=== PATIENT | male | born 1955 | race Caucasian/White ===

== ENCOUNTER 2018-12-22 01:53 | Inpatient (IN) ==
[2018-12-22] MEDS ORDERED: DILAUDID IV ONE (03:40)
[2018-12-22] MEDS ORDERED: ZOFRAN IV ONE (03:40)
--- NOTE | 2018-12-22 03:46 | PROVIDER DOCUMENTATION ---
HPI-Musculoskeletal Pain/Inj - GENERAL Chief Complaint: Hip Injury Stated Complaint: fall (L hip pain) Time Seen by Provider: 12/22/18 02:23 - HX OF PRESENT ILLNESS-MUSKULOSKELTAL Nature of Presenting Problem: Pt states that he rolled out of bed onto floor injuring his left hip. Pt denies any other injuries. Quality of Pain: reports: sharp, stabbing Severity in ED: moderate Onset/Duration: 1-3 hours ago Timing: still present Modifying Factors: improves with: movement Any recent injury?: Yes Locality of Occurance: Home Similar Symptoms Previously?: No Recently seen or treated by another doctor?: No - FALL INJURY Location of Pain/Injury: reports: lower extremity Pain Radiation: reports: no radiation Reason for Fall: reports: unknown Symptoms prior to fall:: reports: none Loss of Consciousness: no loss of consciousness Injury Associated Symptoms: reports: unable to bear weight - BACK & NECK PAIN/INJURY Context / Method of Injury: reports: fall Associated Symptoms: reports: denies symptoms History of Chronic Neck or Back Pain?: No - TRUNK INJURY Context / Method of Injury: reports: none Associated Symptoms: reports: denies symptoms - HIP/PELVIS PAIN/INJURY Hip Pain Location: reports: hip (L) Pain Radiation: reports: no radiation Context / Method of Injury: reports: fall Associated Symptoms: reports: denies symptoms - LOWER EXTREMITY PAIN/INJURY Lower Extremities Pain: hip: left Context / Method of Injury: reports: fell (out of bed) Associated Symptoms: reports: denies symptoms Review of Systems - Adult - REVIEW OF SYSTEMS - ADULT Constitutional: reports: no symptoms reported, see HPI Eyes: reports: no symptoms reported, see HPI Ears, Nose, Mouth & Throat: reports: no symptoms reported, see HPI Cardiovascular: reports: no symptoms reported, see HPI Respiratory: reports: no symptoms reported, see HPI Gastrointestinal: reports: no symptoms reported, see HPI Genitourinary: reports: no symptoms reported, see HPI Musculoskeletal: reports: see HPI, joint pain (lt hip pain) Integumentary: reports: no symptoms reported, see HPI Neurological: reports: no symptoms reported, see HPI Psychiatric: reports: no symptoms reported, see HPI Endocrine: reports: no symptoms reported, see HPI Hematologic/Lymphatic: reports: no symptoms reported, see HPI Allergic/Immunologic: reports: no symptoms reported, see HPI All Other Systems: Reviewed and Negative Past History - Adult - PAST MEDICAL HISTORY-ADULT Review of Records: reports: Nursing Assessment Review, Medications Reviewed, Social history reviewed & non-contributory. Major Childhood Illnesses: reports: denies history Cardiovascular: reports: HTN Respiratory: reports: denies history Gastrointestinal: reports: denies history Genitourinary: reports: denies history Musculoskeletal: reports: other (rt knee OA) Neurological: reports: denies history Psychiatric: reports: denies history Endocrine/Immune: reports: Diabetes Physical Exam-Injury Related - Physical Exam-Injury Related Initial Vital Signs Reviewed: Yes General Appearance: appears well, alert, no apparent distress Eyes: PERRL/EOMI Head, Ears, Nose, Mouth & Throat: normocephalic/atraumatic, moist mucous membranes, normal ENT inspection Neck: non-tender, full range of motion, supple, normal inspection Respiratory: chest non-tender, lungs clear, normal breath sounds, no pleuratic chest pain, no respiratory distress, no accessory muscle use Cardiovascular: normal peripheral pulses, regular rate, rhythm, no edema, no gallop, no JVD, no murmur Abdominal Exam: normal bowel sounds, non tender, soft, no organomegaly, no pulsatile mass Lymphatic: no adenopathy Back Exam: normal inspection, no CVA tenderness, no vertebral tenderness Extremity: deformity, tenderness (to Lt hip) Integumentary: normal color, warm/dry 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 as tested, grossly normal, no motor/sensory deficits Psych/Mental Status: normal mood/affect, normal thought content, normal thought process, oriented x 3 - Glascow Coma Score Best Eye Response (Alexand[place]): (4) open spontaneously Best Verbal Response (Genoveva): (5) oriented Best Motor Response (Genoveva): (6) obeys commands Progress - PLAN OF CARE/RESULTS Progress/Plan/Lab Results: Vital Signs - 8 hr 12/22/18 02:05 Temperature 98.6 F Pulse Rate 101 H Respiratory Rate 14 Blood Pressure 128/85 O2 Sat by Pulse Oximetry 95 Orders Category Date Time Status CHEST-1 VIEW [RAD] Stat Exams 12/22/18 03:11 Taken XRAY PELVIS W/HIP 2-3VW LT [RAD] Stat Exams 12/22/18 02:24 Taken Hydromorphone [Dilaudid] Med 12/22/18 03:40 Discontinued 1 mg IV NOW ONE Ondansetron [Zofran] Med 12/22/18 03:40 Discontinued 4 mg IV NOW ONE - CONSULTS/PCP/HOSPITALIST Notification #1 *Consult/PCP/Hospitalist*: Dr Jaquez Time Discussed: 03:48 (agrees consult) Consult Disposition: Admit #2 Consult: Dr Pineda Time Discussed: 03:48 Consult Disposition: Admit Departure - Departure Date of Disposition Decision: 12/22/18 Time of Disposition Decision: 03:48 DIAGNOSIS: Hip fracture, left Disposition: ADMITTED INPATIENT 09 Certified Medical Emergency: Emergent Condition: Fair Additional Freetext Instructions: ED Follow Up Instructions: You have been treated by a care provider in the Emergency Department. These instructions are being provided to you so you can have an understanding of how to care for yourself upon discharge. Upon discharge from the Emergency Department, you are responsible for making arrangements for follow-up care by a physician of your choice. Take all prescribed medications as directed. Return to the Emergency Department immediately for any new or worsening symptoms. You may call the Physician Referral phone number at [phone] to obtain a list of Physicians who are taking new patients. Referrals and Follow-Ups: Howard Tejeda MD [Primary Care Provider] - - Critical Care Note This patient required my direct & personal management of CC.: No Attestation - Physician/ WILL Attestation Patient care was provided by Advanced Practice Provider:: No The physician spent face to face time with patient:: Yes Advanced Practice Provider documentation review:: Supervising physician onsite and consulted in the evaluation and care of this patient. The physician did have a face to face encounter with the patient.
[2018-12-22 05:22] LABS: AGAP 15; ALB/GLOB RATIO 2.9; ALBUMIN 4.3 g/dL (3.5-5.0); ALKALINE PHOSPHATASE 46 U/L (32-122); BUN 24 mg/dL (8-22); CALCIUM 9.7 mg/dL (8.8-10.2); CHLORIDE 103 mmol/L (98-107); COSMO 294; CREATININE 0.6 mg/dL (0.7-1.2); ESTIMATED GFR > 60; GLUCOSE 248 mg/dL (70-104); GOT 21 U/L (10-34); GPT 23 U/L (10-44); POTASSIUM 4.4 mmol/L (3.5-5.1); SODIUM 141 mmol/L (136-145); TCO2 23 mmol/L (25-35); TOTAL BILIRUBIN 0.38 mg/dL (0.20-1.00); TOTAL PROTEIN 5.8 g/dL (6.3-8.3)
[2018-12-22 05:23] LABS: CHOLESTEROL 126 mg/dL (0-200); HDL 46 mg/dL (35-55); LDL 63 mg/dL; TRIGLYCERIDES 83 mg/dL (39-160); VLDL 17 mg/dL
--- NOTE | 2018-12-22 05:25 | HISTORY AND PHYSICAL ---
PRIMARY CARE PROVIDER: Dr. Howard Tejeda. CHIEF COMPLAINT: Hip injury after fall out of bed. HISTORY OF PRESENT ILLNESS: Mr. Larose is a very pleasant 63-year-old male. He rolled out of his bed onto the floor injuring his left hip today after being asleep for roughly 1 hour. He was then unable to bear weight. He did not hit his head. He did not have loss of consciousness. He states that the pain is a sharp aching pain. He has a past medical history of hypertension, hyperlipidemia, osteoarthritis of the right knee and adult onset diabetes mellitus type 2 managed with oral antihyperglycemics. He is managed by Dr. Howard Tejeda outpatient. On arrival to the emergency room, an x-ray was obtained of his pelvis and left hip which did show a left hip fracture. Dr. Jaquez was consulted with. The patient will be admitted for further evaluation and treatment. PAST MEDICAL HISTORY: See HPI. PREVIOUS SURGICAL HISTORY: 1. Tonsillectomy. 2. Knee arthroscopy. SOCIAL HISTORY: Lives at home with family. He is . No tobacco, alcohol or illicit drug use. 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 FAMILY HISTORY: Mother had ovarian and lung cancer. Father had lung cancer. Were both fairly heavy smokers. ALLERGIES: No known drug allergies. HOME MEDICATION: 1. Carbidopa/levodopa 25/100. 2. Metformin 1000 mg p.o. b.i.d. 3. Atorvastatin 20 mg p.o. daily. 4. Invokana 100 mg p.o. q.a.m. 5. Zetia 10 mg p.o. daily. 6. Glimepiride 2 mg p.o. daily. 7. Lisinopril 10 mg p.o. daily. 8. Loratadine 10 mg p.o. daily. 9. Multivitamin 1 p.o. daily. 10.Naproxen 500 mg p.o. b.i.d. REVIEW OF SYSTEMS: Fourteen point review of systems conducted with the patient. Pertinent positives listed above in the HPI. All other systems reviewed and found to be negative. PHYSICAL EXAMINATION: VITAL SIGNS: Temperature 98.6, pulse 101, respirations 14, blood pressure 128/ 85, oxygen saturation 95% on room air. GENERAL: Pleasant, obese 63-year-old male lying in the ER stretcher, answers all questions appropriately, is alert and oriented times 3, is in no acute distress. Family is at bedside very attentive. HEENT: Head is atraumatic, normocephalic. Pupils are miotic, equal, round, reactive to light. Extraocular eye movement is intact. Sclerae are anicteric. Conjunctiva is pink. Oral mucosa is mildly dry. NECK: Supple. No JVD. No thyromegaly. Trachea is midline. No cervical lymphadenopathy. CARDIAC: S1, S2 appreciated. No murmurs, gallops, or rubs. Mildly tachycardic. LUNGS: Clear to auscultation bilaterally. No rhonchi, wheezes, rales. Symmetric rise and fall with respirations. ABDOMEN: Protuberant, soft, nondistended, nontender. Bowel sounds present all 4 quadrants, normoactive. No pulsatile mass. No organomegaly. EXTREMITIES: No clubbing, cyanosis, or edema. Two-plus pedal pulses bilaterally. MUSCULOSKELETAL: Left lower extremity decreased range of motion. Patient is able to move his foot. He is unable to move lower extremity within normal limits related to pain at the left hip. Left hip is tender to palpation as well. Other extremities range of motion within normal limits. NEUROLOGICAL: No focal or motor deficits. He is alert and oriented times 3. Otherwise was a nonfocal examination. GENITOURINARY: No bladder distention. Patient voids. Otherwise deferred. DIAGNOSTIC DATA: X-ray of pelvis and hip shows a right hip fracture. Chest x- ray: NAD. LABORATORY DATA: Pending. A CBC, CMP, PT with INR, PTT, hemoglobin A1c, lipid profile and urinalysis have all been ordered. These will be evaluated when available. ASSESSMENT AND PLAN: 1. Left hip fracture. Consult Dr. Jaquez. He was notified by the emergency room. Morphine 2 mg IV q.2 hours as needed for pain. 2. Hypertension. Patient is normotensive. Without having the patient's lab values at this time, I will not restart his lisinopril. We will defer to Dr. Howard Tejeda, his primary care provider, tomorrow as the patient is likely to have surgical intervention. 3. Diabetes mellitus type 2, noninsulin dependent. Again, we will hold his metformin, glimepiride and Invokana as he is NPO. We will defer to Dr. Howard Tejeda to restart these medications or perhaps start sliding scale insulin until the patient is eating normally again. 4. Hyperlipidemia. Check a lipid profile. Continue atorvastatin and Zetia. Further recommendations per patient clinical course. Dictated by PAMELA Carlton for Jt Pineda MD I have performed a face to face diagnostic evaluation. Labs/ Xrays - reviewed. Exam- Ext- Left hip tenderness. A/P- Left hip fracture- Admit, Pain control, Orthopedics consult Dr. Pineda cc: PAMELA Carlton MD Russell T. Barr, MD [facility]
[2018-12-22 05:30] LABS: BASO# 0.01 X1000 (0.0-0.2); BASO% 0.1 % (0.0-0.8); EOS# 0.09 X1000 (0.0-0.7); EOS% 1.2 % (0.0-10.0); HEMATOCRIT 47.2 % (42.0-52.0); HEMOGLOBIN 15.9 g/dL (14.0-18.0); LYMPH# 1.03 X1000 (1.2-3.4); LYMPH% 14.2 % (20.5-51.1); MCH 29.4 PG (27-31); MCHC 33.7 g/dL (33-37); MCV 87.2 FL (81-99); MONO# 0.53 X1000 (0.11-0.59); MONO% 7.3 % (1.7-9.3); MPV 11.6 FL (7.4-10.4); NEUT# 5.58 X1000 (1.4-6.5); NEUT% 77.2 % (42.2-75.2); PLT 116 X1000 (130-400); RBC 5.41 XMIL (4.7-6.1); WBC 7.24 X1000 (4.8-10.8)
[2018-12-22] MEDS: MORPHINE IV PRN ×4 (05:36→19:59)
[2018-12-22] MEDS: NS 1,000 ML IV SCH ×3 (05:39→20:04)
[2018-12-22 06:02] LABS: HEMOGLOBIN A1C 7.3 % (4.8-6.0)
[2018-12-22 07:09] LABS: INR 1.06; PROTIME 14.7 Seconds (11.0-16.0)
[2018-12-22 07:10] LABS: PTT 28.9 Seconds (22.3-41.8)
--- NOTE | 2018-12-22 07:16 | Diag Imaging Result Doc PS360 ---
EXAM: CHEST-1 VIEW 12/22/2018 HISTORY: hip fx protocol TECHNIQUE: AP supine chest at 0301 COMMENT: The inspiration is less optimal than on the previous study of 08/09/2012. Otherwise there has been no significant change. IMPRESSION: No acute disease. Electronically signed by Beck Nunez 12/22/2018 7:14 AM
--- NOTE | 2018-12-22 07:24 | Diag Imaging Result Doc PS360 ---
EXAM: XRAY PELVIS W/HIP 2-3VW LT 12/22/2018 HISTORY: fall, injury TECHNIQUE: AP pelvis and left hip three views COMMENT: There is a fracture of the left femoral neck. There is scoliosis of the lower lumbar spine with convexity to the left. IMPRESSION: Left femoral neck fracture. Electronically signed by Beck Nunez 12/22/2018 7:22 AM
[2018-12-22 07:41] LABS: URINE SOURCE CLEAN CATCH
[2018-12-22] MEDS: ZOFRAN IV PRN ×3 (07:41→17:51)
[2018-12-22 08:18] LABS: BILIRUBIN URINE NEGATIVE (NEGATIVE); BLOOD URINE NEGATIVE (NEGATIVE); COLOR YELLOW; GLUCOSE URINE >1000 mg/dL (NEGATIVE); KETONE URINE 10 mg/dL (NEGATIVE); LEUKOCYTES URINE NEGATIVE (NEGATIVE); NITRITE URINE NEGATIVE (NEGATIVE); PROTEIN URINE TRACE mg/dL (NEGATIVE); SP GRAVITY URINE 1.044; TURBIDITY URINE CLEAR (CLEAR); UROBILINOGEN URINE NORMAL (NORMAL)
[2018-12-22 08:19] LABS: UR EPITHELIAL CELLS <10 /HPF (<10); URINE BACTERIA NEGATIVE /HPF; URINE RBC <10 /HPF (<10); URINE WBC <10 /HPF (<10)
[2018-12-22] MEDS ORDERED: OXY IR PO PRN (08:50)
[2018-12-22] MEDS: THERA M PLUS PO SCH (09:30)
[2018-12-22] MEDS: LIPITOR PO SCH (09:30)
[2018-12-22] MEDS: ZETIA PO SCH (09:30)
--- NOTE | 2018-12-22 09:42 | PROGRESS NOTE ---
DATE: 12/22/2018 SUBJECTIVE: This is a patient of Dr. Howard Tejeda. Was admitted last night. A 63-year-old, rolled out of his bed. He was sound asleep and rolled out of his bed. He struck his left hip, has a hip fracture. They were in preparation and trying to see about getting his left hip or his left knee operated on because of arthritis. PAST MEDICAL HISTORY: Hypertension, hyperlipidemia, osteoarthritis. He has adult onset of type 2 diabetes, managed on oral medications. SURGICAL HISTORY: Tonsillectomy. He has had knee arthroplasty. PHYSICAL EXAMINATION: General: Today he is awake, alert, oriented x 3. Vital Signs: Remains afebrile. Temperature 97.9, pulse 96, respirations 14, blood pressure 115/69. HEENT: Pupils are equal and round. Lungs: Clear in all lung mac. Cardiovascular: Regular rhythm and rate without murmur or S3. Abdomen: Soft. Skin: Warm and dry. LABORATORY: We reviewed lab. White count 7240, hematocrit 47, platelet count 116,000. Sodium 141, potassium 4.4 chloride 103 bicarb 23, BUN 24, creatinine 0.6, albumin 4.3. Cholesterol profile really looks pretty good. Pro time 14.7, PTT is 28. Urinalysis unremarkable. X-ray of the pelvis and hip: He has a left femoral neck Fracture. ASSESSMENT AND PLAN: 1. Left femoral neck fracture. Dr. Jaquez seen. His orthopedic is Dr. Suh. I think they will probably defer surgery until tomorrow and looking at placing a bipolar. 2. Diabetes mellitus type 2. Have him on pattern sugars. 3. History of hypercholesterolemia. Continue his Lipitor. 4. Osteoarthritis. He is getting normal saline at 70 mL an hour. 5. I do not see any other change at this time. cc: MD Howard Elizabeth MD MTDD
--- NOTE | 2018-12-22 11:40 | CONSULTATION ---
DATE OF CONSULTATION: 12/22/2018 CLINICAL HISTORY: The patient is a 63-year-old male who is status post a fall last night while in the bed. He rolled out of bed and struck the floor, landing on his left hip. He noted immediate pain and discomfort. He is unable to bear weight. He denies loss of conscious. He has no other complaints. He was seen in the emergency room. X-rays revealed a left displaced femoral neck fracture. He was admitted to the hospital and orthopedic consultation was requested. The patient denies previous pain with the left hip. PAST MEDICAL HISTORY: Significant for diabetes mellitus type 2, hypertension, hyperlipidemia, osteoarthritis of the right knee. PAST SURGICAL HISTORY: 1. Tonsillectomy. 2. Arthroscopy of the right knee. HOME MEDICATIONS: 1. Carbidopa/levodopa 25/100. 2. Metformin 1000 mg p.o. b.i.d. 3. Atorvastatin 20 mg p.o. daily. 4. Invokana 100 mg p.o. q.a.m. 5. Zetia 10 mg p.o. daily. 6. Glimepiride 2 mg p.o. daily. 7. Lisinopril 10 mg p.o. daily. 8. Loratadine 10 mg p.o. daily. 9. Multivitamin one p.o. daily. 10. Naproxen 500 mg p.o. b.i.d. PHYSICAL EXAMINATION: The patient is awake, alert, and cooperative with the exam. He is nontender with palpation over the cervical spine. Bilateral extremities have good range of motion of the shoulders, elbows, wrists, and fingers. His left elbow has some area of ecchymosis on the posterior aspect of the elbow. There is no palpable deformity. He has good range of motion of the elbow. His left hip is held in an externally rotated position. He has tenderness to palpation about the hip and tenderness with movement. His calf is soft. He has active dorsiflexion and plantar flexion. Right hip, there is no palpable deformity. In the right knee, no acute abnormality. Calf is soft. He is neurovascularly distally. DIAGNOSTIC DATA: X-rays of the left hip revealed a left displaced femoral neck fracture. IMPRESSION: Left displaced femoral neck fracture. PLANS: At this point, I discussed treatment options with the patient. At this time, given patient's findings, I would recommend a total hip arthroplasty. I did discuss with Dr. Suh and he will plan on proceeding with surgery tomorrow. Risks and benefits of surgery were explained including the risks of anesthesia, , bleeding, infection, failure to relieve pain, postoperative stiffness, nerve injury, blood clots, and other imponderables. All questions were answered. The patient agrees to the treatment plan. cc: MD Howard Magallon MD
[2018-12-22] MEDS: SINEMET 25/100 PO SCH (20:00)
[2018-12-23] MEDS: MORPHINE IV PRN ×4 (00:04→07:45)
[2018-12-23] MEDS: ZOFRAN IV PRN ×2 (02:58→16:24)
[2018-12-23 06:10] LABS: BASO# 0.01 X1000 (0.0-0.2); BASO% 0.2 % (0.0-0.8); EOS# 0.16 X1000 (0.0-0.7); EOS% 2.6 % (0.0-10.0); HEMATOCRIT 48.8 % (42.0-52.0); HEMOGLOBIN 15.9 g/dL (14.0-18.0); LYMPH# 0.89 X1000 (1.2-3.4); LYMPH% 14.5 % (20.5-51.1); MCH 29.1 PG (27-31); MCHC 32.6 g/dL (33-37); MCV 89.2 FL (81-99); MONO# 0.64 X1000 (0.11-0.59); MONO% 10.4 % (1.7-9.3); MPV 11.5 FL (7.4-10.4); NEUT# 4.44 X1000 (1.4-6.5); NEUT% 72.3 % (42.2-75.2); PLT 107 X1000 (130-400); RBC 5.47 XMIL (4.7-6.1); RDW 13.3 % (11.5-14.5); WBC 6.14 X1000 (4.8-10.8)
[2018-12-23 06:37] LABS: AGAP 14; BUN 18 mg/dL (8-22); CALCIUM 8.6 mg/dL (8.8-10.2); CHLORIDE 103 mmol/L (98-107); COSMO 288; CREATININE 0.4 mg/dL (0.7-1.2); ESTIMATED GFR > 60; GLUCOSE 194 mg/dL (70-104); POTASSIUM 3.9 mmol/L (3.5-5.1); SODIUM 141 mmol/L (136-145); TCO2 24 mmol/L (25-35)
[2018-12-23] MEDS ORDERED: KEFZOL 1 GM/D5W 1 GM/50 ML IVPB IV ONE (07:03)
[2018-12-23] MEDS ORDERED: VERSED ONE (10:38)
[2018-12-23] MEDS ORDERED: FENTANYL ONE (10:38)
[2018-12-23] MEDS ORDERED: DIPRIVAN 1% ONE (10:39)
[2018-12-23] MEDS ORDERED: QUELICIN (DOSE) ONE (10:49)
[2018-12-23] MEDS ORDERED: XYLOCAINE-MPF 2% ONE (10:51)
[2018-12-23] MEDS ORDERED: TORADOL ONE (10:55)
[2018-12-23] MEDS ORDERED: DURAMORPH ONE (10:55)
[2018-12-23] MEDS ORDERED: SENSORCAINE-MPF 0.5%/EPI 1:200,000 ONE (10:56)
[2018-12-23] MEDS ORDERED: EXPAREL 1.3% ONE (10:56)
[2018-12-23] MEDS ORDERED: CYKLOKAPRON 1,000 MG/NS 1,000 MG/100 ML IVPB ONE (10:56)
[2018-12-23] MEDS ORDERED: SODIUM CHLORIDE 0.9% ONE (10:56)
[2018-12-23] MEDS ORDERED: NEOSPORIN G.U. IRRIGANT ONE (10:56)
[2018-12-23] MEDS ORDERED: KEFZOL 2 GM/D5W 2 GM/50 ML IVPB ONE (11:13)
--- NOTE | 2018-12-23 11:20 | EKG Report ---
Test Performed on : 12/22/2018 04:41:12 AM Test Reason : PREOP Blood Pressure : / mmHG Vent. Rate : 095 BPM Atrial Rate : 095 BPM P-R Int : 186 ms QRS Dur : 108 ms QT Int : 364 ms P-R-T Axes : 054 -55 041 degrees QTc Int : 457 ms Normal sinus rhythm. Left anterior fascicular block Abnormal ECG No previous ECGs available Unconfirmed Result
[2018-12-23] MEDS ORDERED: OFIRMEV 1000 MG/ISOTONIC SOLN 1,000 MG/100 ML BOTTLE ONE (12:26)
[2018-12-23] MEDS ORDERED: ZOFRAN ONE (12:26)
[2018-12-23 12:43] LABS: URINE SOURCE CATH
[2018-12-23 12:50] LABS: UR EPITHELIAL CELLS <10 /HPF (<10); URINE BACTERIA NEGATIVE /HPF; URINE RBC <10 /HPF (<10); URINE WBC <10 /HPF (<10)
[2018-12-23 13:28] LABS: BILIRUBIN URINE NEGATIVE (NEGATIVE); BLOOD URINE NEGATIVE (NEGATIVE); COLOR YELLOW; GLUCOSE URINE >1000 mg/dL (NEGATIVE); KETONE URINE 100 mg/dL (NEGATIVE); LEUKOCYTES URINE NEGATIVE (NEGATIVE); NITRITE URINE NEGATIVE (NEGATIVE); PH URINE 6.5; PROTEIN URINE NEGATIVE (NEGATIVE); SP GRAVITY URINE 1.032; TURBIDITY URINE CLEAR (CLEAR); UROBILINOGEN URINE NORMAL (NORMAL)
[2018-12-23] MEDS ORDERED: NS 1,000 ML ONE (14:41)
--- NOTE | 2018-12-23 15:39 | OPERATIVE NOTE ---
PROCEDURE DATE: 12/23/2018 PREOPERATIVE DIAGNOSIS: Left femoral neck fracture displaced. POSTOP DIAGNOSIS: Left femoral neck fracture displaced. PROCEDURE PERFORMED: Left anterior total hip arthroplasty using a size 12 standard offset stem with a +4 neck length, a 56 mm hemispherical shell with two 6.5 cancellous screws of 35 mm each and a 36 mm inside diameter acetabular liner. ANESTHESIA: General. SURGEON: Spenser Suh MD. MANAGER FIELD SALES: Joaquina Nixon PA-C. COMPLICATIONS: None. BLOOD LOSS: Minimal. DRAINS: Hemovac x1. DESCRIPTION OF PROCEDURE: The patient brought to the operative suite and placed in supine position. After successful administration general anesthesia patient placed on the OSI table in the usual position for left hip. The left hip was then prepped and draped in usual sterile fashion. A longitudinal incision was made beginning 3 cm distal and 3 cm lateral to the anterior superior iliac spine extending distally and slightly laterally 8 cm dissected sharply through skin and subcutaneous tissue down tensor fascia, tensor fascia was incised dissected bluntly down deep tensor fascia, deep tensor fascia was incised and circumflex vessels electrocauterized exposing the anterior capsule. A T capsulotomy was performed exposing the femoral neck. Femoral neck cut was made with oscillating saw. The femoral head was removed power corkscrew. Residual bone fragments from the fracture were removed with a rongeur. The labrum was resected. The acetabulum was serially reamed to 56 to accept a 56 cup. The 56 cup was then driven into place in the proper amount inclination, anteversion and two 6.5 cancellous screws of 35 mm in length were placed superiorly and posterior superiorly and then the 36 mm inside diameter liner was locked onto the shell. Attention was then directed to the femur, was externally rotated, extended, adducted, and elevated out of the way with the hook on the OSI bed. The lateral neck was rongeured. The canal was serially broached to a size 12, a size 12 standard offset +4 was trialed found be excellent leg length stability of the hip, offset and fit and fill of the stem and leg length. The trial was then removed. The definitive stem was seated on the femur and then a ceramic head was seated on the Song taper. The hip was again reduced. It was again found to be in excellent position. The hip was copiously infiltrated with Exparel including posterior capsule, anterior capsule, anterior musculature and subcutaneous tissue. Hip was copiously irrigated with normal saline containing irrigant and Vashe irrigation and then a drain was placed deep to tensor fascia and buried around the stem neck. The tensor fascia was closed with 0 V-Loc suture. Skin edge approximated 2-0 Vicryl. Skin was closed with 4-0 Monocryl and Prineo. A sterile dressing was applied. The patient tolerated the procedure well without complication. At the end the procedure, all counts were correct x2. The patient was transferred to the recovery room in stable condition. cc: MD Howard Munson MD
[2018-12-23] MEDS ORDERED: MILK OF MAGNESIA PO PRN (16:31)
[2018-12-23] MEDS ORDERED: OXY IR PO PRN ×2 (16:31)
[2018-12-23] MEDS ORDERED: ZOFRAN IV PRN (16:31)
[2018-12-23] MEDS ORDERED: MORPHINE IV PRN (16:31)
[2018-12-23] MEDS: ULTRAM PO SCH ×2 (16:45→23:38)
[2018-12-23] MEDS: TYLENOL PO SCH ×2 (18:23→23:38)
[2018-12-23] MEDS: GLUCOPHAGE PO SCH (18:27)
[2018-12-23] MEDS: KEFZOL 2 GM in D5W 50 ML IV SCH (18:47)
[2018-12-23] MEDS: PERIDEX MT SCH (20:36)
[2018-12-23] MEDS: COLACE PO SCH (20:36)
[2018-12-23] MEDS: LYRICA PO SCH (20:37)
[2018-12-23] MEDS: CELEBREX PO SCH (20:37)
[2018-12-23] MEDS: SINEMET 25/100 PO SCH (20:37)
[2018-12-23] MEDS: NON-FORMULARY INJ SUBQ SCH (20:37)
[2018-12-24] MEDS: TYLENOL PO SCH ×4 (03:33→21:32)
[2018-12-24] MEDS: KEFZOL 2 GM in D5W 50 ML IV SCH (03:34)
[2018-12-24] MEDS: ULTRAM PO SCH ×4 (03:34→21:32)
[2018-12-24 06:20] LABS: HEMATOCRIT 40.4 % (42.0-52.0); HEMOGLOBIN 13.4 g/dL (14.0-18.0)
[2018-12-24] MEDS: XARELTO PO SCH (06:33)
[2018-12-24] MEDS: NON-FORMULARY INJ SUBQ SCH ×2 (06:33→21:35)
[2018-12-24 06:44] LABS: AGAP 12; BUN 21 mg/dL (8-22); CALCIUM 8.3 mg/dL (8.8-10.2); CHLORIDE 100 mmol/L (98-107); COSMO 280; CREATININE 0.5 mg/dL (0.7-1.2); ESTIMATED GFR > 60; GLUCOSE 232 mg/dL (70-104); POTASSIUM 3.9 mmol/L (3.5-5.1); SODIUM 135 mmol/L (136-145); TCO2 23 mmol/L (25-35)
--- NOTE | 2018-12-24 08:02 | PROGRESS NOTE ---
DATE: 12/24/2018 SUBJECTIVE: Mr. Larose is a 63-year-old male, who is postoperative day 1 from a left anterior total hip arthroplasty for a left femoral neck fracture. He states he is doing well. He is complaining of some pain in his right knee at this time; although, he does have a history of right knee osteoarthritis. OBJECTIVE: He is a well-developed and well-nourished male. He is alert, oriented, and cooperative with the examination. He is in no acute distress. His vital signs are stable. He is afebrile. His left hip incision is clean, dry, and intact. His left calf is soft. His left leg is grossly neurovascularly intact. His right knee reveals pain and crepitus with range of motion. LABS: Hemoglobin is 13.4 and his hematocrit is 40.4. ASSESSMENT: Stable postoperative day 1 from a left anterior total hip arthroplasty, for a left femoral neck fracture with right knee pain for osteoarthritis. PLAN: We will have him start working with physical therapy and if his right knee continues to bother him, we can give him an injection tomorrow. Dictated by TIFFANY Owens for Spenser Suh MD cc: TIFFANY Owens MD Russell T. Barr, MD
[2018-12-24] MEDS ORDERED: ZOFRAN ODT PO PRN (09:00)
[2018-12-24] MEDS: LYRICA PO SCH ×2 (09:13→21:33)
[2018-12-24] MEDS: ZOFRAN PO SCH ×3 (09:13→21:34)
[2018-12-24] MEDS: GLUCOPHAGE PO SCH ×2 (09:14→17:54)
[2018-12-24] MEDS: CELEBREX PO SCH ×2 (09:14→21:33)
[2018-12-24] MEDS: THERA M PLUS PO SCH (09:15)
[2018-12-24] MEDS: CLARITIN PO SCH (09:15)
[2018-12-24] MEDS: COLACE PO SCH ×2 (09:15→21:33)
[2018-12-24] MEDS: AMARYL PO SCH (09:15)
[2018-12-24] MEDS: ZETIA PO SCH (09:15)
[2018-12-24] MEDS: PEPCID PO SCH (09:15)
[2018-12-24] MEDS: PRINIVIL PO SCH (09:15)
[2018-12-24] MEDS: PERIDEX MT SCH ×2 (09:16→21:32)
[2018-12-24] MEDS: LIPITOR PO SCH (09:16)
--- NOTE | 2018-12-24 12:15 | OPERATIVE NOTE ---
PROCEDURE DATE: 12/24/2018 PROCEDURE: Right knee injection with a mixture of bupivacaine and lidocaine and 80 mg of Depo- Medrol for right knee osteoarthritis. PROCEDURE IN DETAIL: I injected the patient's right knee sterilely which the patient tolerated it well. Hopefully, this will help with pain from his right knee osteoarthritis and we will continue to work with him in physical therapy. Dictated by TIFFANY Owens for Spenser Suh MD cc: TIFFANY Owens MD Russell T. Barr, MD [facility]
[2018-12-24] MEDS: SINEMET 25/100 PO SCH (21:33)
[2018-12-25] MEDS: TYLENOL PO SCH ×4 (05:01→18:03)
[2018-12-25] MEDS: XARELTO PO SCH (06:20)
[2018-12-25] MEDS: ULTRAM PO SCH ×3 (06:20→18:02)
[2018-12-25] MEDS: ZOFRAN PO SCH (06:20)
[2018-12-25] MEDS: NON-FORMULARY INJ SUBQ SCH ×2 (06:21→18:04)
[2018-12-25 06:39] LABS: HEMATOCRIT 39.1 % (42.0-52.0); HEMOGLOBIN 13.1 g/dL (14.0-18.0)
[2018-12-25] MEDS: LYRICA PO SCH ×2 (08:12→20:40)
[2018-12-25] MEDS: PRINIVIL PO SCH (08:12)
[2018-12-25] MEDS: CLARITIN PO SCH (08:12)
[2018-12-25] MEDS: PEPCID PO SCH (08:12)
[2018-12-25] MEDS: LIPITOR PO SCH (08:13)
[2018-12-25] MEDS: COLACE PO SCH (08:13)
[2018-12-25] MEDS: THERA M PLUS PO SCH (08:13)
[2018-12-25] MEDS: AMARYL PO SCH (08:13)
[2018-12-25] MEDS: PERIDEX MT SCH (08:13)
[2018-12-25] MEDS: CELEBREX PO SCH ×2 (08:13→20:40)
[2018-12-25] MEDS: ZETIA PO SCH (08:13)
[2018-12-25] MEDS: GLUCOPHAGE PO SCH ×2 (08:13→18:03)
[2018-12-25] MEDS ORDERED: SENOKOT PO ONE (08:51)
[2018-12-25] MEDS: INVOKANA PO SCH (10:34)
--- NOTE | 2018-12-25 13:44 | PROGRESS NOTE ---
DATE: 12/25/2018 SUBJECTIVE: Froilan Larose is a 63-year-old male who is postoperative day 2 from a left anterior total hip arthroplasty for a displaced femoral neck fracture. He has no complaints. He walked well with physical therapy this morning. He still has not had a bowel movement. OBJECTIVE: He is a well-developed, well-nourished male. He is alert, oriented, and cooperative with exam. His vital signs are stable. He is afebrile. His hemoglobin is 13. His hematocrit is 39%. His wound is clean, dry, intact without sign of infection. ASSESSMENT: Left total hip arthroplasty. PLAN: He will continue working with physical therapy. He will likely go to rehab later in the week. cc: MD Howard Munson MD
[2018-12-25] MEDS: SINEMET 25/100 PO SCH (20:40)
[2018-12-26] MEDS: ULTRAM PO SCH ×3 (03:12→11:54)
[2018-12-26] MEDS: TYLENOL PO SCH ×3 (03:12→11:53)
[2018-12-26] MEDS: NON-FORMULARY INJ SUBQ SCH (06:22)
[2018-12-26] MEDS: XARELTO PO SCH (06:26)
[2018-12-26 06:43] LABS: HEMATOCRIT 38.3 % (42.0-52.0); HEMOGLOBIN 12.5 g/dL (14.0-18.0)
[2018-12-26 07:39] VITALS: BP 130/76
[2018-12-26] MEDS: LIPITOR PO SCH ×2 (08:34→08:39)
[2018-12-26] MEDS: CELEBREX PO SCH (08:34)
[2018-12-26] MEDS: ZETIA PO SCH ×2 (08:35→08:40)
[2018-12-26] MEDS: INVOKANA PO SCH (08:35)
[2018-12-26] MEDS: PEPCID PO SCH (08:36)
[2018-12-26] MEDS: THERA M PLUS PO SCH ×2 (08:36→08:39)
[2018-12-26] MEDS: GLUCOPHAGE PO SCH (08:36)
[2018-12-26] MEDS: PRINIVIL PO SCH (08:36)
[2018-12-26] MEDS: AMARYL PO SCH (08:36)
[2018-12-26] MEDS: CLARITIN PO SCH (08:36)
[2018-12-26] MEDS: LYRICA PO SCH (08:40)
--- NOTE | 2018-12-26 10:02 | DISCHARGE SUMMARY ---
ADMISSION DATE: 12/22/2018 DISCHARGE DATE: 12/26/2018 FINAL DIAGNOSES: 1. Acute left femoral neck fracture, status post left total hip arthroplasty repair. 2. Type 2 diabetes mellitus with peripheral neuropathy. 3. Essential hypertension. HISTORY OF PRESENT ILLNESS: Mr. Larose is a 63-year-old gentleman who was brought to the emergency room by ambulance after his heard him fall out of bed approximately an hour after going to sleep. He was unable to stand or bear weight. He denied head injury or loss of consciousness. X- rays on arrival documented an acute left femoral neck fracture. He was admitted for orthopedic consultation and repair of his hip fracture. PHYSICAL EXAMINATION: Temperature 98.6, pulse 101, respirations 14, blood pressure 125/85. Normal O2 saturation. General appearance: Pleasant, obese, 63-year-old gentleman, alert and oriented. HEENT: No evidence of trauma. Pupils equal, round and reactive to light. Neck: Supple with no JVD. Cardiac: Regular rate and rhythm, no murmurs or gallops. Abdomen: Protuberant, soft, and nontender with active bowel sounds. Extremities: No clubbing, cyanosis, or edema. Left hip was tender to palpation and somewhat shortened and externally rotated. DATA BASE: CBC was normal. Clotting studies were normal. Chemistry profile normal with glucose of 248, hemoglobin A1c of 7.3%. Urinalysis unremarkable. HOSPITAL COURSE: He was admitted to the surgical floor and seen the next morning by Dr. Spenser Suh, his orthopedist. He was taken to the operating room on 12/23/2018 and underwent left total hip arthroplasty. His postoperative course was relatively benign. His blood sugar remained somewhat elevated as his metformin and Invokana were held prior to and immediately after surgery. He required several doses of NPH insulin for glucose control, but I do not think he will need this in rehab or at home. He has no resumed his oral hypoglycemics and his blood sugars are improving. He cooperated well with physical therapy and progressed well but his balance remains precarious due to his large size and his is unable to assist him much at home, and Dr. Suh and I, as well as the patient, felt that he would benefit from short term subacute rehab. He now has a bed at [facility] and is awaiting his insurance approval. I strongly feel 5- 7 days of rehab will be very beneficial for his health and safety. DISCHARGE MEDICATIONS: 1. Celebrex 200 mg twice a day. 2. Famotidine 20 mg daily. 3. Loratadine 10 mg daily p.r.n. for allergies. 4. Zofran ODT 4 mg q.4-6 hours as needed for nausea. 5. Xarelto 10 mg daily. 6. Pregabalin 75 mg twice a day. 7. Milk of magnesia 30 mg daily p.r.n. for constipation. 8. Tramadol 100 mg q.6 hours p.r.n. for pain. 9. Sinemet 25/100 one nightly for restless legs. 10.Metformin 1000 mg twice a day. 11.Atorvastatin 20 mg nightly. 12.Invokana 100 mg in the morning. 13.Zetia 10 mg daily. 14.Glimepiride 2 mg daily. 15.Lisinopril 10 mg daily. 16.One-A-Day Men's Health multivitamin 1 daily. cc: Howard Tejeda MD
== END 2018-12-26 15:52 | disposition home or self-care (01) | DRG 470 ==
LOC: SUPCPDRO → ED 01:53 → SUATTDRO 04:47 → 4N 04:47
PROVIDERS: ADMIT Internal Medicine; ATTEND Internal Medicine
CPT/HCPCS: 71010; 71045; 73502; 76000; 80048; 80053; 80061; 81001; 82948; 83036; 84443; 85014; 85018; 85025; 85610; 85730; 86850; 86900; 86901; 88305; 88311; 93005; 94761; 94799; 96374; 96375; 97110; 97116; 97162; 97530; 99285; A9270; C9290; J0131; J0330; J0690; J1170; J1885; J2250; J2270; J2274; J2275; J2405; J3010; J7030; J7060; Q9974; XXXXX

== ENCOUNTER 2019-04-21 04:30 | Inpatient (IN) ==
[2019-04-16 08:36] LABS: URINE SOURCE CLEAN CATCH
[2019-04-16 08:46] LABS: BASO# 0.03 X1000 (0.0-0.2); BASO% 0.7 % (0.0-0.8); EOS# 0.33 X1000 (0.0-0.7); EOS% 7.6 % (0.0-10.0); HEMATOCRIT 47.7 % (42.0-52.0); HEMOGLOBIN 15.6 g/dL (14.0-18.0); LYMPH% 27.5 % (20.5-51.1); MCH 26.7 PG (27-31); MCHC 32.7 g/dL (33-37); MCV 81.5 FL (81-99); MONO# 0.38 X1000 (0.11-0.59); MONO% 8.7 % (1.7-9.3); MPV 11.8 FL (7.4-10.4); NEUT# 2.42 X1000 (1.4-6.5); NEUT% 55.5 % (42.2-75.2); PLT 148 X1000 (130-400); RBC 5.85 XMIL (4.7-6.1); RDW 13.4 % (11.5-14.5); WBC 4.36 X1000 (4.8-10.8)
[2019-04-16 08:47] LABS: BILIRUBIN URINE NEGATIVE (NEGATIVE); BLOOD URINE NEGATIVE (NEGATIVE); COLOR YELLOW; GLUCOSE URINE >1000 mg/dL (NEGATIVE); KETONE URINE NEGATIVE (NEGATIVE); LEUKOCYTES URINE NEGATIVE (NEGATIVE); NITRITE URINE NEGATIVE (NEGATIVE); PH URINE 5.5; PROTEIN URINE NEGATIVE (NEGATIVE); SP GRAVITY URINE 1.019; TURBIDITY URINE CLEAR (CLEAR); UROBILINOGEN URINE NORMAL (NORMAL)
[2019-04-16 08:53] LABS: UR EPITHELIAL CELLS <10 /HPF (<10); URINE BACTERIA NEGATIVE /HPF; URINE RBC <10 /HPF (<10); URINE WBC <10 /HPF (<10)
--- NOTE | 2019-04-16 09:01 | EKG Report ---
Test Performed on : 04/16/2019 07:55:56 AM Test Reason : PAT Blood Pressure : / mmHG Vent. Rate : 095 BPM Atrial Rate : 095 BPM P-R Int : 186 ms QRS Dur : 092 ms QT Int : 352 ms P-R-T Axes : 070 -59 036 degrees QTc Int : 442 ms Normal sinus rhythm. Left axis deviation Inferior infarct , age undetermined Abnormal ECG When compared with ECG of 22-DEC-2018 04:41, No significant change was found Confirmed by Baljit HERNANDEZ, Pieter Christian ([id number]) on 04/17/2019 6:36:11 PM
[2019-04-16 09:20] LABS: AGAP 12; ALBUMIN 4.3 g/dL (3.5-5.0); BUN 18 mg/dL (8-22); CALCIUM 9.3 mg/dL (8.8-10.2); CHLORIDE 103 mmol/L (98-107); COSMO 291; CREATININE 0.6 mg/dL (0.7-1.2); ESTIMATED GFR > 60; GLUCOSE 202 mg/dL (70-104); POTASSIUM 4.7 mmol/L (3.5-5.1); SODIUM 142 mmol/L (136-145); TCO2 27 mmol/L (25-35)
[2019-04-16 09:37] LABS: INR 0.95; PROTIME 13.4 Seconds (11.0-16.0)
[2019-04-16 09:38] LABS: PTT 30.3 Seconds (22.3-41.8)
[2019-04-16 10:01] LABS: HEMOGLOBIN A1C 7.7 % (4.8-6.0)
[2019-04-21] MEDS ORDERED: PEPCID ONE (08:38)
[2019-04-21] MEDS ORDERED: COLACE ONE (08:38)
[2019-04-21] MEDS ORDERED: REGLAN ONE (08:38)
[2019-04-21] MEDS ORDERED: CELEBREX ONE (08:39)
[2019-04-21] MEDS ORDERED: KEFZOL 1 GM/D5W 2 GM/100 ML IVPB ONE (08:39)
[2019-04-21] MEDS ORDERED: LR 1,000 ML ONE (08:39)
[2019-04-21] MEDS ORDERED: LYRICA ONE (08:39)
[2019-04-21] MEDS ORDERED: DIPRIVAN 1% ONE (10:04)
[2019-04-21] MEDS ORDERED: FENTANYL ONE (10:06)
[2019-04-21] MEDS ORDERED: TORADOL ONE (10:36)
[2019-04-21] MEDS ORDERED: MARCAINE 0.25% PF ONE (10:36)
[2019-04-21] MEDS ORDERED: DURAMORPH ONE (10:36)
[2019-04-21] MEDS ORDERED: SODIUM CHLORIDE 0.9% ONE (10:37)
[2019-04-21] MEDS ORDERED: CYKLOKAPRON 1,000 MG/NS 1,000 MG/100 ML IVPB ONE ×2 (10:37→10:38)
[2019-04-21] MEDS ORDERED: EXPAREL 1.3% ONE (10:37)
[2019-04-21] MEDS ORDERED: VANCOMYCIN ONE (10:37)
[2019-04-21] MEDS ORDERED: NEOSPORIN G.U. IRRIGANT ONE (10:37)
[2019-04-21] MEDS ORDERED: ZEMURON ONE (11:18)
[2019-04-21] MEDS ORDERED: OFIRMEV 1000 MG/ISOTONIC SOLN 1,000 MG/100 ML BOTTLE ONE (11:32)
[2019-04-21] MEDS ORDERED: DECADRON ONE (11:32)
[2019-04-21] MEDS ORDERED: ZOFRAN ONE (11:32)
[2019-04-21 11:53] LABS: URINE SOURCE CATH
[2019-04-21 12:17] LABS: BILIRUBIN URINE NEGATIVE (NEGATIVE); BLOOD URINE NEGATIVE (NEGATIVE); COLOR YELLOW; GLUCOSE URINE >1000 mg/dL (NEGATIVE); KETONE URINE NEGATIVE (NEGATIVE); LEUKOCYTES URINE NEGATIVE (NEGATIVE); NITRITE URINE NEGATIVE (NEGATIVE); PH URINE 5.5; PROTEIN URINE NEGATIVE (NEGATIVE); SP GRAVITY URINE 1.021; TURBIDITY URINE CLEAR (CLEAR); UROBILINOGEN URINE NORMAL (NORMAL)
[2019-04-21 12:18] LABS: UR EPITHELIAL CELLS <10 /HPF (<10); URINE BACTERIA NEGATIVE /HPF; URINE RBC <10 /HPF (<10); URINE WBC <10 /HPF (<10)
[2019-04-21] MEDS ORDERED: EPHEDRINE ONE (12:45)
--- NOTE | 2019-04-21 13:26 | OPERATIVE NOTE ---
PROCEDURE DATE: 04/21/2019 PREOPERATIVE DIAGNOSIS: Right knee degenerative joint disease. POSTOPERATIVE DIAGNOSIS: Right knee degenerative joint disease. PROCEDURE PERFORMED: Right total knee arthroplasty using [facility] size 7 femoral component, size 8 tibial base plate, a 10 mm articular insert, and a 32 mm patellar component. ANESTHESIA: General. SURGEON: Spenser Suh MD. WORKDAY DIRECTOR: Joaquina Nixon PA-C, who was present throughout the case whose assistance was critical for exposure, placement of the implants, and closure. Her assistance greatly improved the efficiency and reduced the anesthesia time and the case would not have been as successful without her assistance. BLOOD LOSS: Minimal. DRAINS: Hemovac x1. TOURNIQUET TIME: Approximately an hour half. DESCRIPTION OF PROCEDURE: The patient was brought to the operative suite and placed in supine position. After successful administration of general anesthesia, a well-padded tourniquet was placed on the right proximal thigh. Right lower extremity was prepped and draped in the usual sterile fashion. Leg was exsanguinated. Tourniquet insufflated to 350 torr. A longitudinal incision was made beginning at the superior pole of the patella, extended distally to the tibia tuberosity. A medial arthrotomy was then made. The medial arthrotomy was then made. The medial capsule was elevated off the medial tibial plateau. The ACL, PCL, medial meniscus, lateral meniscus were excised. A drill was entered into the center of the distal femur. Intramedullary guide was placed. Distal cutting block was pinned into place. Distal cut was made with oscillating saw. Marginal osteophytes removed with a rongeur. Attention was directed to the tibia. A drill was entered into the center of the tibia. Intramedullary guide was placed. The line was checked with drop delmy referencing off the anterior cortex, tibia and the second ray the foot and taking 4 mm off the low side of the tibia which in this case was medially. The tibial cutting block was pinned into place on the articular surface. Tibial plateau was removed with oscillating saw. Marginal osteophytes were removed with a rongeur. There was a cyst that was removed with a curette. Extension gap was checked and was 10 mm. Therefore, the flexion gap was set to 19 mm to include 9 mm of the posterior condyles of the tibia. Rotation was set and then the femur was sized to a size 7. Size 7 cutting block was pinned into place with proper rotation and the anterior cuts, chamfer cuts and posterior condylar cuts were made with oscillating saw. Marginal osteophytes again were removed with a rongeur. The box cutting block was pinned into place. Box cut was made with box osteotome and oscillating saw. Posterior condyle osteophytes were removed with curved osteotome and rongeur. Attention was then directed to the tibia. The tibia was sized to a size is 8. A size 8 guide was used for the fin punch. The tibial trial, femoral trial, and 10 mm articular insert was placed and taken through range of motion, found to have excellent alignment, balancing, range of motion. Attention was then directed to patella, 9 mm of the articular surface of patella removed with oscillating saw. Patella sized to a size 32. A size 32 guide was used to drill peg holes. Lateral facet was chamfered 30 to 45 degrees. Patella trial was placed, taken through range of motion and found to have excellent patella tracking. All trials were then removed. The knee was copiously irrigated and dried, being certain all bone debris was removed. The tibial component, femoral component, patellar component, were cemented into place, excess cement being removed with a [place]. Once the cement had hardened, excess cement was again removed with an osteotome. Knee was again copiously irrigated and dried, being certain all bone and cement debris were removed. The trial articular insert was removed. The knee was copiously infiltrated with Exparel including the posterior capsule, anterior capsule, anterior musculature and subcutaneous tissue. Definitive articular insert was then locked into place. The tourniquet was deflated. Hemostasis was obtained with electrocautery. The knee was again copiously irrigated with normal saline containing irrigant and Vashe irrigation. A drain was placed exiting superior laterally and buried in the lateral gutter. The medial arthrotomy was closed with a combination of #1 Vicryl sutures and 0 V-Loc suture. The skin edge was approximated with 2-0 Vicryl. Skin incision was then closed with Prineo and a sterile dressing was applied. The patient tolerated the procedure well without complication. At the end of the procedure, all counts were correct x2. The patient was transferred to the recovery room in stable condition. cc: MD KASSY Munson
[2019-04-21] MEDS ORDERED: NS 1,000 ML ONE (13:46)
[2019-04-21] MEDS ORDERED: ZOFRAN IV PRN (15:15)
[2019-04-21] MEDS ORDERED: ZOFRAN ODT PO PRN (15:15)
[2019-04-21] MEDS ORDERED: MILK OF MAGNESIA PO PRN (15:15)
[2019-04-21] MEDS ORDERED: MORPHINE IV PRN ×2 (15:15)
[2019-04-21] MEDS: ULTRAM PO SCH ×2 (16:13→21:02)
[2019-04-21] MEDS: NS 1,000 ML IV SCH (18:01)
[2019-04-21] MEDS: TYLENOL PO SCH (18:07)
[2019-04-21] MEDS: KEFZOL 2 GM/D5W 2 GM/50 ML IVPB IV SCH (18:07)
[2019-04-21] MEDS: CELEBREX PO SCH (21:03)
[2019-04-21] MEDS: COLACE PO SCH (21:03)
[2019-04-21] MEDS: LYRICA PO SCH (21:03)
[2019-04-21] MEDS: PERIDEX MT SCH (21:11)
[2019-04-21] MEDS: LIPITOR PO SCH (21:11)
[2019-04-21] MEDS: SINEMET 25/100 PO SCH (21:11)
[2019-04-21] MEDS: GLUCOPHAGE PO SCH (21:11)
[2019-04-22] MEDS: TYLENOL PO SCH ×5 (01:36→23:24)
[2019-04-22] MEDS: ULTRAM PO SCH ×4 (03:35→23:25)
[2019-04-22] MEDS: KEFZOL 2 GM/D5W 2 GM/50 ML IVPB IV SCH (03:36)
[2019-04-22] MEDS: NS 1,000 ML IV SCH ×2 (03:36→17:20)
[2019-04-22 06:22] LABS: HEMATOCRIT 42.6 % (42.0-52.0); HEMOGLOBIN 13.7 g/dL (14.0-18.0)
[2019-04-22] MEDS: OXY IR PO PRN ×3 (06:24→20:14)
[2019-04-22 06:46] LABS: AGAP 9; BUN 23 mg/dL (8-22); CALCIUM 8.5 mg/dL (8.8-10.2); CHLORIDE 105 mmol/L (98-107); COSMO 290; CREATININE 0.6 mg/dL (0.7-1.2); ESTIMATED GFR > 60; GLUCOSE 189 mg/dL (70-104); POTASSIUM 4.5 mmol/L (3.5-5.1); SODIUM 141 mmol/L (136-145); TCO2 27 mmol/L (25-35)
[2019-04-22] MEDS: PERIDEX MT SCH ×2 (08:54→20:15)
[2019-04-22] MEDS: CELEBREX PO SCH ×2 (08:55→20:12)
[2019-04-22] MEDS: ZETIA PO SCH (08:55)
[2019-04-22] MEDS: INVOKANA PO SCH (08:55)
[2019-04-22] MEDS: ASPIRIN PO SCH (08:55)
[2019-04-22] MEDS: COLACE PO SCH ×2 (08:56→20:15)
[2019-04-22] MEDS: VITAMIN C PO SCH (08:56)
[2019-04-22] MEDS: THERA M PLUS PO SCH (08:57)
[2019-04-22] MEDS: AMARYL PO SCH (08:57)
[2019-04-22] MEDS: PEPCID PO SCH (08:57)
[2019-04-22] MEDS: LYRICA PO SCH ×2 (08:57→20:13)
[2019-04-22] MEDS: CLARITIN PO SCH (08:57)
[2019-04-22] MEDS: PRINIVIL PO SCH (08:57)
[2019-04-22] MEDS: GLUCOPHAGE PO SCH ×2 (08:58→20:12)
--- NOTE | 2019-04-22 09:07 | ORTHOPAEDICS PROGRESS NOTE ---
DATE: 04/22/2019 SUBJECTIVE: Mr. Larose is a 64-year-old male who is postoperative day 1 from a right total knee arthroplasty. He has no new complaints. OBJECTIVE: General: He is well developed, well nourished male. He is alert, oriented, cooperative with the examination. He is in no acute distress. Vital Signs: Stable. He is afebrile. Extremities: His right knee dressing is clean, dry, intact. LABORATORY DATA: His hemoglobin is 13.7 and his hematocrit is 42.6. He has had 80 mL of drainage from his Hemovac drain in the last 8 hours. ASSESSMENT: 1. Status post right total knee arthroplasty. 2. History of sleep apnea. 3. History of diabetes mellitus type 2. 4. History of hypercholesterolemia. PLAN: We are going to admit the patient and monitor his progress with physical therapy and to monitor his sleep apnea and also his diabetes mellitus type 2. We will have him start working with physical therapy. We will continue to manage his pain. Dictated by TIFFANY Owens for Spenser Suh MD cc: TIFFANY Owens MD
--- NOTE | 2019-04-22 15:49 | Diag Imaging Result Doc PS360 ---
EXAM: CHEST-PORTABLE INDICATION: rehab placement TECHNIQUE: 2 views COMPARISON: 12/22/2018 FINDINGS: Inspiration is suboptimal. There is mild stable scarring at the right lung apex and the right infrahilar region. The lungs are grossly clear, otherwise. There is no discrete pleural fluid collection or pneumothorax. The cardiomediastinal silhouette and central vasculature are grossly unremarkable. IMPRESSION: Stable mild scarring on the right. No evidence of acute chest pathology by plain radiograph. Electronically signed by Jesse Bella 04/22/2019 3:47 PM
[2019-04-22] MEDS: SINEMET 25/100 PO SCH (20:12)
[2019-04-22] MEDS: LIPITOR PO SCH (20:15)
[2019-04-22] MEDS: MORPHINE IV PRN (21:36)
[2019-04-23] MEDS: OXY IR PO PRN ×2 (02:08→09:35)
[2019-04-23] MEDS: TYLENOL PO SCH ×3 (06:18→19:51)
[2019-04-23] MEDS: ULTRAM PO SCH ×3 (06:18→19:50)
[2019-04-23 07:09] LABS: HEMATOCRIT 43.1 % (42.0-52.0); HEMOGLOBIN 13.7 g/dL (14.0-18.0)
[2019-04-23] MEDS: ASPIRIN PO SCH (09:36)
[2019-04-23] MEDS: INVOKANA PO SCH (09:36)
[2019-04-23] MEDS: VITAMIN C PO SCH (09:36)
[2019-04-23] MEDS: PEPCID PO SCH (09:36)
[2019-04-23] MEDS: AMARYL PO SCH (09:36)
[2019-04-23] MEDS: GLUCOPHAGE PO SCH ×2 (09:36→21:01)
[2019-04-23] MEDS: CLARITIN PO SCH (09:36)
[2019-04-23] MEDS: COLACE PO SCH ×2 (09:36→20:59)
[2019-04-23] MEDS: THERA M PLUS PO SCH (09:36)
[2019-04-23] MEDS: ZETIA PO SCH (09:36)
[2019-04-23] MEDS: CELEBREX PO SCH ×2 (09:37→21:00)
[2019-04-23] MEDS: PRINIVIL PO SCH (09:37)
[2019-04-23] MEDS: PERIDEX MT SCH ×2 (09:37→20:59)
[2019-04-23] MEDS: LYRICA PO SCH ×2 (15:02→21:00)
--- NOTE | 2019-04-23 17:52 | ORTHOPAEDICS PROGRESS NOTE ---
DATE: 04/23/2019 SUBJECTIVE: Mr. Larose is a 64-year-old male who is postoperative day 2 from a right total knee arthroplasty. He is complaining of increased pain in his right knee at this time. OBJECTIVE: He is a well-developed well-nourished male. He is alert, oriented, cooperative with examination. He is in no acute distress. His vital signs are stable and he is afebrile. His right knee dressing is clean, dry, and intact. He has a negative Homans on the right side. LABORATORIES: His hemoglobin is 13.7, his hematocrit is 43.1. PHYSICAL THERAPY: Yesterday, he walked 100 feet. He was unable to make much progress with physical therapy today, though, due to his increased pain in his right knee. ASSESSMENT: 1. Stable postoperative day 2 from a right total knee arthroplasty. 2. History of sleep apnea. 3. History of diabetes mellitus, type 2. 4. History of hypercholesterolemia. PLAN: We will continue to monitor the patient, and we will continue to manage his pain. He is having difficulty ambulating with physical therapy due to his pain. We are going to keep him here 1 more night, and hopefully he can be admitted to a rehabilitation facility tomorrow. Dictated by TIFFANY Owens for Spenser Suh MD cc: TIFFANY Owens MD
[2019-04-23] MEDS: MORPHINE IV PRN (20:59)
[2019-04-23] MEDS: LIPITOR PO SCH (21:00)
[2019-04-23] MEDS: SINEMET 25/100 PO SCH (21:01)
[2019-04-24] MEDS: OXY IR PO PRN ×2 (04:03→13:10)
[2019-04-24] MEDS: TYLENOL PO SCH ×3 (04:08→13:11)
[2019-04-24] MEDS: ULTRAM PO SCH ×2 (06:37)
[2019-04-24 07:11] LABS: HEMATOCRIT 43.6 % (42.0-52.0); HEMOGLOBIN 13.9 g/dL (14.0-18.0)
[2019-04-24] MEDS: PERIDEX MT SCH (09:18)
[2019-04-24] MEDS: ZETIA PO SCH (09:19)
[2019-04-24] MEDS: AMARYL PO SCH (09:19)
[2019-04-24] MEDS: PRINIVIL PO SCH (09:19)
[2019-04-24] MEDS: GLUCOPHAGE PO SCH (09:19)
[2019-04-24] MEDS: CELEBREX PO SCH (09:19)
[2019-04-24] MEDS: PEPCID PO SCH (09:19)
[2019-04-24] MEDS: INVOKANA PO SCH (09:19)
[2019-04-24] MEDS: COLACE PO SCH (09:19)
[2019-04-24] MEDS: THERA M PLUS PO SCH (09:19)
[2019-04-24] MEDS: CLARITIN PO SCH (09:20)
[2019-04-24] MEDS: ASPIRIN PO SCH (09:20)
[2019-04-24] MEDS: VITAMIN C PO SCH (09:20)
[2019-04-24] MEDS: LYRICA PO SCH (09:22)
[2019-04-24 12:33] VITALS: BP 126/75
--- NOTE | 2019-04-24 21:32 | DISCHARGE SUMMARY ---
ADMISSION DATE: 04/21/2019 DISCHARGE DATE: 04/24/2019 DISCHARGE DIAGNOSIS: Right total knee arthroplasty. DISCHARGE MEDICATION: See discharge med list. DISPOSITION: The patient underwent a right total knee arthroplasty. His postoperative course was [*] by difficulty with physical therapy. He needs to go to rehab due to his size and lack of progress with physical therapy and for the patient's safety. He did not ambulate at all yesterday, but did ambulate some on Sunday. His wound is clean, dry, intact. His vital signs are stable. He is afebrile. He is discharged to rehab with instructions to follow up with Dr. Suh next . Instructed to return for any signs or symptoms of infection or deep venous thrombosis. HOSPITAL COURSE: On the day of admission the patient underwent a right total knee arthroplasty. He did well the first day, but he did not walk at all on Sunday. He walked 200 feet on the . He can almost straighten his knee. He has about 5 degrees of extensor lag. He can flex his knee to about 90 degrees. On day of admission he underwent a right total knee arthroplasty. At discharge he is afebrile, tolerating a regular diet, and ambulating with physical therapy. He is discharged to rehab in stable condition with instructions to follow up as described above. cc: Spenser Suh MD
== END 2019-04-24 15:10 | disposition home or self-care (01) | DRG 470 ==
LOC: SURHOLD 04:30 → 4N 12:06
PROVIDERS: ADMIT Orthopaedic Surgery; ATTEND Orthopaedic Surgery
CPT/HCPCS: 71010; 71045; 80048; 81001; 82040; 82948; 83036; 85014; 85018; 85025; 85610; 85730; 86850; 86900; 86901; 88305; 88311; 93005; 93010; 94761; 94799; 97110; 97116; 97162; 97530; A9270; C9290; J0131; J0690; J1100; J1885; J2270; J2274; J2275; J2405; J3010; J3370; J7030; J7120; Q9974; S0020; S0181; S1119; S119; XXXXX